=== PATIENT | male | born 1950 ===

== ENCOUNTER 2018-06-05 22:37 | Emergency (ER) | payer MEDICARE ==
[2018-06-05 22:55] VITALS: PULSE 70
[2018-06-05 23:21] LABS: BASO % 0.4 % (0.0-2.0); EOS # 0.1 K/uL (0.0-0.7); EOS % 2.1 % (0.0-4.0); HEMOGLOBIN 15.6 g/dL (12.0-18.0); LYMPH # 2.5 K/uL (1.0-4.3); LYMPH % 38.1 % (20.0-40.0); MEAN CELL VOLUME 93.6 fL (80.0-94.0); MEAN CORPUSCULAR HEMOGLOBIN 31.6 pg (27.0-31.0); MEAN CORPUSCULAR HGB CONC 33.7 g/dL (33.0-37.0); MEAN PLATELET VOLUME 8.1 fL (7.2-11.7); MONO # 0.5 K/uL (0.0-0.8); MONO % 8.2 % (0.0-10.0); NEUT # 3.3 K/uL (1.8-7.0); NEUT % 51.2 % (50.0-75.0); RBC 4.95 Mil/uL (4.40-5.90); RED CELL DISTRIBUTION WIDTH 12.8 % (11.5-14.5); WHITE BLOOD COUNT 6.5 K/uL (4.8-10.8)
--- NOTE | 2018-06-05 23:29 | C.PDOC ---
History Of Present Illness 67 year old male presents to the ED accompanied by his for evaluation. Patient reports having a syncopal episode while at a whiskey tasting. 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 Despite knowledge of this patient attended the whiskey tasting and consumed two shots of whiskey. Patient denies headache, visual changes, nausea, vomit, CP, SOB, palpitations, weakness, numbness. Time Seen by Provider: 06/05/18 23:21 Chief Complaint (Nursing): Syncope History Per: Patient, Family History/Exam Limitations: no limitations Onset/Duration Of Symptoms: Hrs Current Symptoms Are (Timing): Still Present Activity At Onset Of Symptoms: Lying Associated Symptoms Preceding Syncopal Episode: No Predromal Symptoms (Sudden Onset) Seizure Or Post-ictal Symptoms: None Possible Causative Factor(s): Recent Alcohol Fall Associated With With Symptoms: No Severity: None Recent travel outside of the [place]: No Additional History Per: Patient, Family Past Medical History Reviewed: Historical Data, Nursing Documentation, Vital Signs Vital Signs: Last Vital Signs Temp Pulse 70 06/05/18 22:47 Resp 17 06/05/18 22:47 BP 98/72 L 06/05/18 22:47 Pulse Ox 94 L 06/05/18 22:47 - Medical History PMH: No Chronic Diseases Other PMH: lack of alcohol dehydrogenase Surgical History: No Surg Hx Family History: States: Unknown Family Hx - Social History Hx Alcohol Use: Yes Hx Substance Use: No - Immunization History Hx Tetanus Toxoid Vaccination: No Hx Influenza Vaccination: No Hx Pneumococcal Vaccination: No Review Of Systems Constitutional: Negative for: Fever, Chills Cardiovascular: Negative for: Chest Pain, Palpitations Respiratory: Negative for: Shortness of Breath Gastrointestinal: Negative for: Nausea, Vomiting, Abdominal Pain Skin: Negative for: Rash Neurological: Negative for: Weakness, Numbness, Headache, Dizziness Physical Exam - Physical Exam Appears: Non-toxic, No Acute Distress, Other (mild flushed) Skin: Normal Color, Warm, Dry Head: Atraumatic, Normacephalic Eye(s): bilateral: Normal Inspection Neck: Normal ROM, Supple Chest: Symmetrical Cardiovascular: Rhythm Regular Respiratory: Normal Breath Sounds, No Rales, No Rhonchi, No Wheezing Gastrointestinal/Abdominal: Soft, No Tenderness, No Guarding, No Rebound Extremity: Normal ROM, No Tenderness, No Swelling Neurological/Psych: Oriented x3, Normal Speech, Normal Cognition Gait: Steady ED Course And Treatment - Laboratory Results Result Diagrams: 06/05/18 23:19 O2 Sat by Pulse Oximetry: 96 (ON RA) Pulse Ox Interpretation: Normal Medical Decision Making Medical Decision Making: drinking shots of whisky @ a tasting, 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 normal EKG Disposition Doctor Will See Patient In The: Office Counseled Patient/Family Regarding: Studies Performed, Diagnosis - Disposition Referrals: Patient Transportation [facility] [Outside] [facility] [Outside] [facility] [Outside] [facility] [Outside] Disposition: HOME/ ROUTINE Disposition Time: 23:28 Condition: GOOD Additional Instructions: avoid alcohol consumption due to your probable lack of alcohol dehydrogenase- an enzyme essential to metabolism of alcohol never drink alcohol on an empty stomach EKG normal Instructions: Vasovagal Response (DC), Adverse Drug Reactions, Adult (DC) Forms: [facility] ([place]) - Clinical Impression Clinical Impression: Adverse reaction to alcohol products - Scribe Statement The provider has reviewed the documentation as recorded by the Scribe Pastor Marcos All medical record entries made by the Scribe were at my direction and personally dictated by me. I have reviewed the chart and agree that the record accurately reflects my personal performance of the history, physical exam, medical decision making, and the department course for this patient. I have also personally directed, reviewed, and agree with the discharge instructions and disposition.
[2018-06-05 23:42] VITALS: BP 120/70; RESP 14; TEMP 97.5
[2018-06-06 00:42] VITALS: O2SAT 96
--- NOTE | 2018-06-08 21:06 | CARD ---
APPROVED REPORT Date of service: 06/05/2018 EKG Measurement Heart [id number] <Conclusion> Normal sinus rhythm Left axis deviation Otherwise normal for age.
== END 2018-06-05 23:41 | disposition home or self-care (01) ==
LOC: C.ER 22:37
DX: T78.8XXA Other adverse effects, not elsewhere classified, initial encounter (principal); X58.XXXA Exposure to other specified factors, initial encounter